=== PATIENT | female | born 1950 | race Caucasian/White ===

== ENCOUNTER 2017-08-03 19:33 | Emergency (ER) | payer MEDICARE ==
[2017-08-03 19:55] VITALS: TEMP 99.3; O2SAT 100
--- NOTE | 2017-08-03 20:47 | C.PDOC ---
History Of Present Illness 66 year old female presents to the ER with a complaint of right ankle pain that began today. Denies trauma, change in sensation, leg pain/swelling, chest pain, SOB, or fever. Time Seen by Provider: 08/03/17 19:43 Chief Complaint (Nursing): Lower Extremity Problem/Injury History Per: Patient History/Exam Limitations: no limitations Onset/Duration Of Symptoms: Hrs Current Symptoms Are (Timing): Still Present Recent travel outside of the [place]: No Past Medical History Reviewed: Historical Data, Nursing Documentation, Vital Signs Vital Signs: Last Vital Signs Temp 99.3 F 08/03/17 19:51 Pulse 80 08/03/17 21:08 Resp 14 08/03/17 21:08 BP 130/80 08/03/17 21:08 Pulse Ox 100 08/03/17 21:10 Family History: States: Unknown Family Hx - Social History Hx Alcohol Use: Yes Hx Substance Use: No Review Of Systems Constitutional: Negative for: Fever, Chills Cardiovascular: Negative for: Chest Pain, Palpitations Respiratory: Negative for: Shortness of Breath Musculoskeletal: Positive for: Foot Pain (Right ankle). Negative for: Leg Pain (or swelling) Neurological: Negative for: Weakness, Numbness Physical Exam - Physical Exam Appears: Well, Non-toxic, No Acute Distress Skin: Normal Color, Warm, Dry Head: Atraumatic, Normacephalic Eye(s): bilateral: Normal Inspection, EOMI Nose: Normal Oral Mucosa: Moist Chest: Symmetrical Respiratory: No Accessory Muscle Use Extremity: Normal ROM (x4), Capillary Refill (<2 seconds), Other (Right lateral ankle tenderness and swelling, no erythema.) Pulses: Left Dorsalis Pedis: Normal, Right Dorsalis Pedis: Normal Neurological/Psych: Oriented x3, Normal Speech, Normal Motor, Normal Sensation Gait: Steady ED Course And Treatment O2 Sat by Pulse Oximetry: 100 (room air) Pulse Ox Interpretation: Normal - Other Rad Right ankle x-ray X-Ray: Viewed By Me, Read By Radiologist Interpretation: No acute fractures or dislocations. Progress Note: Right ankle x-ray ordered, results were negative. Tylenol administered. Patient reports improvement of right ankle pain, stirrup splint applied by boiler technician for support and patient instructed to follow up with ortho for further evaluation. Disposition - Disposition Referrals: Viraj Rios III, MD [Staff Provider] - Disposition: HOME/ ROUTINE Disposition Time: 20:46 Condition: STABLE Additional Instructions: Rest, ice and elevate the area. Follow up with PMD in 1-2 days. Return to ER if symptoms persist or worsen. Descanse, hiele y eleve el carlos alberto. Inna un seguimiento con PMD en 1-2 castorena. Regrese a la anuj de emergencias si los sntomas persisten o empeoran. Instructions: Ankle Sprain Forms: [employer] (Serbian) Print Language: WOLOF - Clinical Impression Clinical Impression: Ankle sprain - Scribe Statement The provider has reviewed the documentation as recorded by the Scribe Carroll Mcghee All medical record entries made by the Scribe were at my direction and personally dictated by me. I have reviewed the chart and agree that the record accurately reflects my personal performance of the history, physical exam, medical decision making, and the department course for this patient. I have also personally directed, reviewed, and agree with the discharge instructions and disposition.
[2017-08-03 21:13] VITALS: BP 130/80; PULSE 80; RESP 14
--- NOTE | 2017-08-04 08:48 | RAD ---
Right ankle three views History: Trauma. Comparison: None available. Findings: Prominent lateral malleolar soft tissue swelling. No evidence of acute displaced fracture or dislocation. Ankle mortise maintained. Talar dome intact. Degenerative changes with some joint space narrowing at the talonavicular joint space. Enthesopathic change noted at the distal Achilles tendon insertion. Vascular calcifications. Impression: Prominent lateral malleolar soft tissue swelling. If pain persists, consider further evaluation with MRI.
== END 2017-08-03 21:09 | disposition home or self-care (01) ==
LOC: C.ER 19:33
DX: S93.401A Sprain of unspecified ligament of right ankle, initial encounter (principal); X58.XXXA Exposure to other specified factors, initial encounter